=== PATIENT | female | born 1970 | race Caucasian/White ===

== ENCOUNTER 2016-07-13 10:08 | Emergency (ER) | payer OTHER ==
[~2016-07-13] VITALS: Ht 157.5 cm; Wt 62.9 kg
[2016-07-13 10:51] LABS: EOSINOPHIL (%) 1.3 % (0-5); EOSINOPHIL COUNT 0.1 K/uL (0-0.3); HEMATOCRIT 38.3 % (36.0-46.0); IMMATURE GRANULOCYTE (%) 0.3 % (0.0-0.7); IMMATURE GRANULOCYTE COUNT 0.2 K/uL; LYMPHOCYTE COUNT 1.2 K/uL (1.0-2.8); MCH 32.3 PG (29.0-34.0); MCHC 33.9 G/DL (30.0-36.0); MCV 95.3 FL (83-99); MEAN PLAT.VOLUME 8.8 uM^3 (9.5-12.4); MONOCYTE (%) 6.7 % (3-12); MONOCYTE COUNT 0.5 K/uL (0-0.8); NEUTROPHIL (%) 75.1 % (45-76); NEUTROPHIL COUNT 5.4 K/uL (1.8-6.4); PLATELET COUNT 209 K/uL (156-360); RBC DIS.WIDTH-CV 12.2 % (11.8-14.6); RBC DIS.WIDTH-SD 41.3 % (39-53); RED BLOOD COUNT 4.02 M/uL (3.80-5.20); WHITE BLOOD COUNT 7.2 K/uL (4.1-10.2)
[2016-07-13 11:04] LABS: CHLORIDE 109 mEq/L (99-109); POTASSIUM 3.8 mEq/L (3.7-5.4); SODIUM 140 mEq/L (136-147)
[2016-07-13 11:06] LABS: GLUCOSE 85 mg/dL (70-99)
[2016-07-13 11:07] LABS: ANION GAP 7 MEQ/L (2-14)
[2016-07-13 11:10] LABS: GFR ESTIMATE (CALCULATED) > 59 mL/min/
[2016-07-13 11:11] LABS: UREA NITROGEN (BUN) 8 mg/dL (9-23)
[2016-07-13] MEDS ORDERED: PERCOCET 5/31 TABLET PO (11:44)
[2016-07-13] MEDS ORDERED: CIPRO500 MG PO (11:44)
[2016-07-13] MEDS ORDERED: ZOFRAN ODT4 MG PO (11:44)
[2016-07-13] MEDS ORDERED: FLAGYL500 MG PO (11:44)
[2016-07-13 12:04] VITALS: BP 102/62
[2016-07-13 12:04] LABS: ADD MIUA? NO; BILIRUBIN NEGATIVE; BLOOD NEGATIVE; COLOR YELLOW ((YELLOW)); GLUCOSE (STRIP) NEGATIVE; KETONES NEGATIVE; LEUKOCYTES NEGATIVE; NITRITE NEGATIVE; PH, URINE 7.5 (5-8); PROTEIN (STRIP) NEGATIVE; SPECIFIC GRAVITY 1.009 (1.000-1.030); UCUL ADDED? NO; UROBILINOGEN 0.2 MG/DL (0.2-1.0)
== END 2016-07-13 12:08 | disposition home or self-care (01) ==
LOC: EME 10:08
PROVIDERS: Emergency Medicine
DX: K57.32 Diverticulitis of large intestine without perforation or abscess without bleeding (principal); N20.0 Calculus of kidney; Z87.442 Personal history of urinary calculi
CPT/HCPCS: 74176; 80048; 81003; 85025; 99281; 99285; J1170; J1885; J2405; J2765; J7030

== ENCOUNTER 2017-05-27 13:14 | Emergency (ER) | payer OTHER ==
[~2017-05-27] VITALS: Ht 157.5 cm; Wt 59.7 kg
[~2017-05-27 13:14] MED LIST: CIPRO500 MG PO; FLAGYL500 MG PO; PERCOCET 5/31 TABLET PO; ZOFRAN ODT4 MG PO
[2017-05-27] MEDS ORDERED: TYLENOL WITH C1 EACH PO (17:39)
[2017-05-27 17:46] VITALS: BP 132/80
== END 2017-05-27 17:47 | disposition home or self-care (01) ==
LOC: EME 13:14
DX: M79.605 Pain in left leg (principal); R60.1 Generalized edema; Z88.2 Allergy status to sulfonamides; Z88.0 Allergy status to penicillin; Z88.1 Allergy status to other antibiotic agents
CPT/HCPCS: 93971; 99281; 99284